=== PATIENT | female | born 1965 | race Caucasian/White ===

== ENCOUNTER 2017-08-10 09:02 | Emergency (ER) | payer BC ==
[2017-08-10 10:53] VITALS: BP 115/96
--- NOTE | 2017-08-10 11:21 | UC ---
Skin Complaint HPI - HPI Summary HPI Summary: pinching pain began on left side of spine yesterday--has developed discomfort that radiates around ribs. has rash and erythema left thoracic back. . patient reports feeling achy and flu like-no fever - History of Current Complaint Chief Complaint: UCSkin Time Seen by Provider: 08/10/17 11:13 Stated Complaint: SKIN CONCERN Hx Obtained From: Patient Hx Last Menstrual Period: 12/11/2013 ?: No Onset/Duration: Sudden Onset, Lasting Days - 1, Still Present Timing: Constant Pain Intensity: 0 Character: Pain, Redness Aggravating Factor(s): Nothing Alleviating Factor(s): Nothing Associated Signs & Symptoms: Positive: Negative - Allergy/Home Medications Allergies/Adverse Reactions: Allergies Allergy/AdvReac Type Severity Reaction Status Date / Time Sulfa (Sulfonamide Allergy Rash Verified 08/10/17 10:53 Antibiotics) Review of Systems Constitutional: Chills, Fatigue Skin: Rash Eyes: Negative ENT: Negative Respiratory: Negative Cardiovascular: Negative Gastrointestinal: Negative Genitourinary: Negative Motor: Negative Neurovascular: Negative Musculoskeletal: Negative Neurological: Negative Psychological: Negative Is Patient Immunocompromised?: No All Other Systems Reviewed And Are Negative: Yes PMH/Surg Hx/FS Hx/Imm Hx Previously Healthy: No - nex dx of Lupus (no treatment per patient) - Surgical History Surgical History: Yes Surgery Procedure, Year, and Place: R cyst and R ovary removed - Family History Known Family History: Positive: None - Social History Occupation: Employed Full-time Lives: With Family Alcohol Use: Daily Alcohol Amount: glass of wine daily Substance Use Type: None Smoking Status (MU): Never Smoked Tobacco Physical Exam Triage Information Reviewed: Yes Appearance: Well-Appearing, No Pain Distress, Well-Nourished Vital Signs: Initial Vital Signs Temp 99.5 F 08/10/17 10:42 Pulse 66 08/10/17 10:42 Resp 14 08/10/17 10:42 BP 115/96 08/10/17 10:42 Pulse Ox 100 08/10/17 10:42 Vital Signs Reviewed: Yes Eye Exam: Normal Eyes: Positive: Conjunctiva Clear ENT Exam: Normal ENT: Positive: Normal ENT inspection, Hearing grossly normal, Pharynx normal. Negative: Nasal drainage, Trismus, Muffled voice, Hoarse voice Dental Exam: Normal Neck exam: Normal Neck: Positive: Supple, Nontender Respiratory Exam: Normal Respiratory: Positive: Chest non-tender, Lungs clear, Normal breath sounds, No respiratory distress, No accessory muscle use Cardiovascular Exam: Normal Cardiovascular: Positive: RRR, No Murmur, Pulses Normal, Tachycardia Musculoskeletal Exam: Normal Musculoskeletal: Positive: Strength Intact, ROM Intact, No Edema Neurological Exam: Normal Neurological: Positive: Alert, Muscle Tone Normal Psychological Exam: Normal Skin Exam: Normal Course/Dx - Course Course Of Treatment: swab for HSV/VZV. begin keflex and acyclovir follow with Dr. Martini in 2-3 days, return as needed--to ED for worsening SX - Diagnoses Provider Diagnoses: Cellulitis left mid back Discharge - Sign-Out/Discharge Documenting (check all that apply): Discharge/Admit/Transfer - Discharge Plan Condition: Stable Disposition: HOME Prescriptions: Acyclovir* [Zovirax 400 MG TAB*] 800 mg PO QID 5 Days #40 tab Cephalexin CAP* [Keflex CAP*] 500 mg PO TID #21 cap Patient Education Materials: Ibuprofen (By mouth), Shingles (ED), Cellulitis ( ED) Referrals: Efrem Martini MD [Primary Care Provider] - 4 Days - Billing Disposition and Condition Condition: STABLE Disposition: Home
== END 2017-08-10 11:43 | disposition home or self-care (01) ==
LOC: UCCORT 09:02
DX: L03.312 Cellulitis of back [any part except buttock and flank] (principal)
CPT/HCPCS: 87529; 87798; 99212; G0463

== ENCOUNTER 2018-02-16 08:59 | Emergency (ER) | payer BC ==
[2018-02-16 09:14] VITALS: BP 121/68
--- NOTE | 2018-02-16 09:37 | ED ---
Throat Pain/Nasal Congestion - HPI Summary HPI Summary: 52 yr old female with the complaint of sinus pressure, post nasal drip, yellow nasal discharge and sore throat. Onset 4-5 days ago, and now also with hoarse voice/laryngitis over the weekend. The patient has had chills, myalgias and fatigue. No SOB. She has not had fever. Her symptoms are moderate in intensity. - History of Current Complaint Chief Complaint: UCRespiratory Time Seen by Provider: 02/16/18 09:20 - Allergies/Home Medications Allergies/Adverse Reactions: Allergies Allergy/AdvReac Type Severity Reaction Status Date / Time Penicillins Allergy Hives Verified 02/16/18 09:11 Sulfa (Sulfonamide Allergy Rash Verified 02/16/18 09:11 Antibiotics) PMH/Surg Hx/FS Hx/Imm Hx - Cancer History Cancer Type, Location and Year: none - Surgical History Surgery Procedure, Year, and Place: R cyst and R ovary removed Infectious Disease History: No Infectious Disease History: Denies: Traveled Outside the [place] in Last 30 Days - Family History Known Family History: Positive: None - Social History Occupation: Employed Full-time Alcohol Use: Daily Alcohol Amount: glass of wine daily Substance Use Type: Reports: None Smoking Status (MU): Never Smoked Tobacco Review of Systems Constitutional: Negative Positive: Sore Throat, Nasal Discharge Positive: Cough All Other Systems Reviewed And Are Negative: Yes Physical Exam Triage Information Reviewed: Yes Vital Signs On Initial Exam: Initial Vitals Temp Pulse Resp BP Pulse Ox 98.6 F 70 16 121/68 100 02/16/18 09:11 02/16/18 09:11 02/16/18 09:11 02/16/18 09:11 02/16/18 09:11 Vital Signs Reviewed: Yes Appearance: Positive: Well-Appearing, No Pain Distress Skin: Positive: Warm, Skin Color Reflects Adequate Perfusion Head/Face: Positive: Normal Head/Face Inspection Eyes: Positive: EOMI ENT: Positive: Pharyngeal erythema, Nasal congestion, Nasal drainage, TMs normal , Sinus tenderness Neck: Positive: Nontender Respiratory/Lung Sounds: Positive: Clear to Auscultation, Breath Sounds Present Cardiovascular: Positive: RRR. Negative: Bradycardia Abdomen Description: Positive: Nontender Musculoskeletal: Positive: Strength/ROM Intact Neurological: Positive: Sensory/Motor Intact, Alert, Oriented to Person Place, Time, CN Intact II-III Psychiatric: Positive: Normal - Tani Coma Scale Best Eye Response: 4 - Spontaneous Best Motor Response: 6 - Obeys Commands Best Verbal Response: 5 - Oriented Coma Scale Total: 15 Diagnostics - Vital Signs Vital Signs Temp Pulse Resp BP Pulse Ox 02/16/18 09:11 98.6 F 70 16 121/68 100 - Laboratory Lab Statement: Any lab studies that have been ordered have been reviewed, and results considered in the medical decision making process. EENT Course/Dx - Course Course Of Treatment: 52 yr old female with sinusitis, laryngitis. Rx wtih Biaxin. Rx with prednisone, and tesalon perles. - Diagnoses Provider Diagnoses: Sinusitis, Laryngitis Discharge - Sign-Out/Discharge Documenting (check all that apply): Patient Departure All imaging exams completed and their final reports reviewed: No Studies - Discharge Plan Condition: Good Disposition: HOME Prescriptions: Benzonatate CAP* [Tessalon 100 MG CAP*] 100 mg PO TID #14 cap Clarithromycin TAB* [Biaxin 500 MG TAB*] 500 mg PO BID #20 tab predniSONE TAB* [Deltasone 20 MG TAB*] 40 mg PO DAILY #6 tab Patient Education Materials: Sinusitis (ED), Laryngitis (ED) Referrals: Efrem Martini MD [Primary Care Provider] - 2 Days - Billing Disposition and Condition Condition: GOOD Disposition: Home
--- NOTE | 2018-02-18 11:42 | UC ---
- Progress Note Progress Note: See nursing note from today. We'll prescribe Robitussin-AC 5 mL's by mouth every 4 hours when necessary dispensed total number of 60 mL Course/Dx - Diagnoses Provider Diagnoses: Sinusitis, Laryngitis Discharge - Sign-Out/Discharge Documenting (check all that apply): Patient Departure All imaging exams completed and their final reports reviewed: No Studies - Discharge Plan Condition: Good Disposition: HOME Prescriptions: Benzonatate CAP* [Tessalon 100 MG CAP*] 100 mg PO TID #14 cap Clarithromycin TAB* [Biaxin 500 MG TAB*] 500 mg PO BID #20 tab guaiFENesin/CODIEN 100MG-10MG* [Robitussin AC 100Mg-10Mg*] 5 ml PO Q4H PRN #60 ml MDD 30 PRN Reason: Cough predniSONE TAB* [Deltasone 20 MG TAB*] 40 mg PO DAILY #6 tab Patient Education Materials: Sinusitis (ED), Laryngitis (ED) Referrals: Efrem Martini MD [Primary Care Provider] - 2 Days - Billing Disposition and Condition Condition: GOOD Disposition: Home
== END 2018-02-16 09:37 | disposition home or self-care (01) ==
LOC: UCCORT 08:59
DX: J32.9 Chronic sinusitis, unspecified (principal); J04.0 Acute laryngitis; Z88.2 Allergy status to sulfonamides; Z88.0 Allergy status to penicillin
CPT/HCPCS: 99212; G0463